=== PATIENT | female | born 1955 | race Caucasian/White ===

== ENCOUNTER 2016-06-19 19:31 | Inpatient (IN) | payer MEDICARE ==
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
--- NOTE | ~2016-06-19 | PN ---
Unit #: [id number] #: [id number] Patient: TETE OCONNELL [id number] [facility] [address] [place] [address] [id number] I MR#: [id number] NAME: TETE OCONNELL ROOM: P203 Age: 61 Sex: F Admission Date: 06/19/2016 : 1955 Attending Physician: Maxim Mathew M.D. Admitting Physician: Maxim Mathew M.D. Primary Care Physician: Sujata Rosales PROGRESS NOTES DATE 06/23/2016 DISCUSSION The patient is brighter today and more active within the therapeutic milieu. She is denying suicidal ideation but states that she is unclear as to where she will leave upon her discharge from the hospital. I have explained to the patient that she cannot remain here secondary to only to disposition issues and I have told her to expect a.m. discharge. Dictated by... Maxim Mathew M.D. CB/justen TD: 06/23/2016 23:48 JOB #: [id number] TIM PROGRESS NOTES X Maxim Mathew MD PROGRESS NOTE
--- NOTE | ~2016-06-19 | HP ---
Unit #: [id number] #: [id number] Patient: VIVIENNE OCONNELL [id number] [place] [address] [id number] I MR#: [id number] NAME: VIVIENNE OCONNELL ROOM: P203 Age: 61 Sex: F Admission Date: 06/19/2016 : 1955 Attending Physician: Maxim Mathew M.D. Admitting Physician: Maxim Mathew M.D. Primary Care Physician: Nolberto Dixon M.D. HISTORY AND PHYSICAL HISTORY OF PRESENT ILLNESS Vivienne is a 61 year old admitted to [address] [place] [address] because of her polysubstance abuse which includes methamphetamine and cocaine. She also reports depression and verbalizing wanting to hurt herself. PAST MEDICAL HISTORY 1. Degenerative disc disease. 2. Hypothyroidism. 3. High blood pressure. 4. GERD. 5. Chronic pain. a. Dilaudid pump. 6. Pacemaker placed. 7. COPD. 8. Hyperlipidemia. 9. Morbid obesity. PAST SURGICAL HISTORY 1. Hysterectomy. 2. Cholecystectomy. 3. Low back x3. 4. Lap-band. 5. Pain pump placed. ALLERGIES Keflex, Abilify, morphine. SOCIAL HISTORY She denies cigarettes, alcohol and illicit drug use. FAMILY HISTORY Medically noncontributory. REVIEW OF SYSTEMS CONSTITUTIONAL: No fever or chills. HEENT: Denies any sore throat, ear pain or runny nose. CARDIOVASCULAR: Denies chest pain, irregular heart rhythm or palpitations. CHEST: Denies shortness of breath or cough. No hemoptysis. GASTROINTESTINAL: Denies nausea, vomiting, diarrhea or chronic constipation. ENDOCRINE: Denies history of increased thirst or urination. No recent significant weight loss or gain. GENITOURINARY: Denies dysuria, frequency, or hematuria. Unit #: [id number] #: [id number] Patient: VIVIENNE OCONNELL SKIN: Denies any rashes. HEMATOLOGIC: Denies history of increased bleeding or bruising. MUSCULOSKELETAL: Denies any hot, swollen joints. No generalized muscle pain. NEUROLOGIC: Denies problems with vision or speech. No frequent, severe headaches. No numbness, tingling or weakness in any extremities. Denies loss of bladder or bowel control. CURRENT MEDICATIONS 1. Detox protocol. 2. Cymbalta 30 mg daily. 3. Diovan 160 mg daily. 4. Levothroid 0.075 mg daily. 5. Flexeril 10 mg t.i.d. p.r.n. 6. HCTZ 25 mg daily. 7. Lyrica 50 mg t.i.d. 8. Protonix 40 mg daily. 9. Norvasc 5 mg daily. 10. Wellbutrin XL 150 mg daily. PHYSICAL EXAMINATION GENERAL: Alert, morbidly obese, no apparent distress. VITAL SIGNS: Blood pressure 138/70, heart rate 80, respirations 16, temperature 98.6. WEIGHT: 315. HEIGHT: 5 feet 7 inches. SKIN: Warm and dry without rash or lesion. HEENT: Normocephalic. TMs not viewed. Oral and nasal passages clear. Conjunctivae clear. PERRLA. EOMs intact. NECK: Supple without lymphadenopathy or thyromegaly. HEART: Regular rate and rhythm without murmur. LUNGS: Clear. ABDOMEN: Soft, nontender. : Not done. EXTREMITIES: No evidence of cyanosis, clubbing or edema. Moves all without focal deficit. NEUROLOGICAL: Grossly within normal limits. Cranial Nerves: II: Visual brown are intact. III, IV AND : Extraocular movements are intact. Pupils are equal, round and reactive to light. V: Facial sensation is grossly normal. VII: Facial movements and expression are normal. VIII: Auditory acuity grossly intact. IX, X: Uvula is midline. Phonation is normal. XI: Patient shrugs shoulders and turns head normally. XII: Tongue protrudes in the midline. Sensory and Motor Function: Sensory and motor sensation is grossly normal. Motor: moves all extremities well. Coordination: Gait is normal. Deep Tendon Reflexes: Intact. IMPRESSION Psychiatric admission. RECOMMENDATIONS PSYCHIATRIC: Per psychiatrist. MEDICAL: 1. See no contraindications to participate in facility's activities. 2. Continue Diovan, Levothroid, HCTZ, Norvasc. Check BMP. Monitor blood pressure q. shift. Unit #: [id number] #: [id number] Patient: VIVIENNE OOCNNELL MEDICAL PROGNOSIS Good. MEDICAL CONDITION Stable. Dictated by... Veronika Meza P.A.-C. for Sujata Piña/gretchen TD: 06/20/2016 16:34 JOB #: [id number] HISTORY AND PHYSICAL X Veronika Meza HISTORY AND PHYSICAL
--- NOTE | ~2016-06-19 | PN ---
Unit #: [id number] #: [id number] Patient: TETE OCONNELL [id number] [facility] [address] [place] [address] [id number] I MR#: [id number] NAME: TETE OCONNELL ROOM: P203 Age: 61 Sex: F Admission Date: 06/19/2016 : 1955 Attending Physician: Maxim Mathew M.D. Admitting Physician: Maxim Mathew M.D. Primary Care Physician: Sujata Rosales PROGRESS NOTES DATE 06/22/2016 DISCUSSION The patient is abed seclusive to room with little participation of therapeutic milieu. She is firmly confronted regarding this. She states that she continues to feel "just about the same" and complains that she will not eat "the garbage they serve here" demanding initiation of Ensure. I have explained to the patient that given her degree of morbid obesity that Ensure is not indicated and that she should attempt to order heart healthy items from the milieu here. I have also encouraged her to increase her participation within the therapeutic milieu. The patient's profound acces to pathology is becoming more and more apparent. Dictated by... Maxim Mathew M.D. CB/justen TD: 06/22/2016 21:42 JOB #: [id number] TIM PROGRESS NOTES X Maxim Mathew MD X PROGRESS NOTE
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
[~2016-06-19 19:31] MED LIST: ALPRAZOLAM PO; AMBIEN PO; AMBIEN10 MG PO; ATIVAN0.5 MG PO; CELEXA PO; CRESTOR; DILAUDID PAIN PUMP; DILAUDID PUMP; DIOVAN; DIOVAN HCT 160-1 TAB PO; GABAPENTIN300 MG PO; HCTZ; HYDROCHLOROTHIA25 MG PO; HYDROCODON-ACE1 EAC9 PO; LASIX20 MG PO; LEXAPRO PO; LYRICA PO; MEDI-MECLIZINE25 M1 PO; MIRALAX17 GM PO; MOTION RELIEF25 MG PO; MOTRIN400 MG PO; NEURONTIN600 MG PO; PERCOCET10 PO; PERPHENAZINE8 MG PO; PHENERGAN PO; PHENERGAN SUPP25 MG PR; PRAVACHOL PO; PROMETHAZINE HC25 MG PO; SEROQUEL; SEROQUEL PO; SEROQUEL400 MG PO; TRAZODONE HCL100 MG PO; WELLBUTRIN; WELLBUTRIN PO; WELLBUTRIN XL PO; XANAX2 MG PO; ZOCOR PO
[2016-06-20 09:47] LABS: BASOPHIL# 0.1 X10e3 (0-0.3); BASOPHIL% 0.8 % (0-2.5); EOSINOPHIL# 0.3 X10e3 (0-0.7); EOSINOPHIL% 3.4 % (0.0-7.0); HEMATOCRIT 39.5 % (35.0-45.0); HEMOGLOBIN 13.2 gm/dL (12.0-16.0); LYMPHOCYTE# 2.8 X10e3 (1.0-3.5); LYMPHOCYTE% 33.8 % (17.0-45.0); MEAN CELL VOLUME 87.2 FL (83-96); MEAN CORPUSCULAR HEMOGLOBIN 29.2 PG (28-34); MEAN CORPUSCULAR HGB CONC 33.5 g/dL (30-36); MEAN PLATELET VOLUME 9.5 FL (6.5-11.5); MONOCYTE# 0.6 X10e3 (0-1.0); MONOCYTE% 7.3 % (3.0-12.0); NEUTROPHIL# 4.5 X10e3 (1.5-7.1); NEUTROPHIL% 54.7 % (40-75); PLATELET COUNT 239 X10e3 (140-420); RED BLOOD COUNT 4.53 X10e (3.90-5.30); RED CELL DISTRIBUTION WIDTH 12.9 % (11.0-15.5); WHITE BLOOD COUNT 8.3 X10e3 (4.0-10.5)
[2016-06-20 10:08] LABS: DIFF IND NO
[2016-06-20 10:19] LABS: THYROID STIMULATING HORMONE 4.83 uIU/ml (0.34-5.60)
[2016-06-20 10:23] LABS: ALBUMIN SERUM 3.5 g/dL (3.5-5.0); ALKALINE PHOSPHATASE 143 U/L (32-92); ALT (SGPT) 23 U/L (10-40); AST (SGOT) 34 U/L (10-42); BILIRUBIN,TOTAL 0.5 mg/dL (0.2-2.0); BLOOD UREA NITROGEN 12 mg/dL (9-23); CALCIUM SERUM 8.6 mg/dL (8.4-10.2); CARBON DIOXIDE 31 mmol/L (22-31); CHLORIDE 97 mmol/L (100-111); CREATININE SERUM 0.6 mg/dL (0.6-1.4); GLOM FILT RATE Estimated ABOVE60 mL/min (>60); GLUCOSE FASTING 165 mg/dL (70-110); PROTEIN TOTAL SERUM 6.5 g/dL (6.0-8.3); SODIUM 138 mmol/L (135-145)
[2016-06-20 10:28] LABS: FREE THYROXIN (T4) 0.74 ng/dL (0.58-1.64)
== END 2016-06-24 15:14 | disposition home or self-care (01) | DRG 885 ==
LOC: P2S 19:31
PROVIDERS: Specialist
DX: F33.1 Major depressive disorder, recurrent, moderate (principal); E66.01 Morbid (severe) obesity due to excess calories; I10 Essential (primary) hypertension; F15.10 Other stimulant abuse, uncomplicated; K21.9 Gastro-esophageal reflux disease without esophagitis; E03.9 Hypothyroidism, unspecified; G89.29 Other chronic pain; Z95.0 Presence of cardiac pacemaker; J44.9 Chronic obstructive pulmonary disease, unspecified; E78.5 Hyperlipidemia, unspecified; Z90.710 Acquired absence of both cervix and uterus; F41.9 Anxiety disorder, unspecified
CPT/HCPCS: 80053; 84439; 84443; 85025

== ENCOUNTER 2016-09-10 23:00 | Inpatient (IN) | payer MEDICARE, OTHER ==
--- NOTE | ~2016-09-10 | DS ---
Unit #: [id number] #: [id number] Patient: TETE OCONNELL [id number] [facility] [address] [place] [address] [id number] I MR#: [id number] NAME: TETE OCONNELL ROOM: [facility] Age: 61 Sex: F Admission Date: 09/11/2016 : 1955 Discharge Date: 09/15/2016 Attending Physician: Maxim Mathew M.D. Primary Care Physician: Nolberto Dixon M.D. DISCHARGE SUMMARY REASON FOR ADMISSION The patient is a 61-year-old white female, admitted with recurrent suicidal ideation. HOSPITAL COURSE The patient was admitted to the [address] [address] and placed on suicide precautions. She was continued on home medications with wish to increase the Cymbalta to 60 mg daily. The patient was more active in her participation within the therapeutic milieu and was brighter as her hospitalized progressed. She stated that she had reconciled with her on 09/15 and requests discharge and it was ordered. DISCHARGE DIAGNOSES Viper I Major depressive disorder, recurrent, moderate. Alcohol use disorder. Viper II Viper III Morbid obesity. Hypertension. GERD. Viper IV Viper V DISPOSITION ON DISCHARGE The patient is discharged on the following medications: 1. Cymbalta 60 mg daily for depression 2. Vistaril 50 mg q.6h p.r.n. anxiety 3. Norvasc 5 mg once daily for hypertension 4. Wellbutrin XL 450 mg daily for depression 5. Flexeril 10 mg three times daily for muscle relaxation 6. Oretic 25 mg once daily for hypertension 7. Synthroid 0.075 mg daily for hypothyroidism 8. Protonix 40 mg once daily for GERD 9. Diovan 160 mg daily for hypertension PROGNOSIS The patient's prognosis is considered fair. DIET AND ACTIVITY No dietary or physical restrictions placed on this patient at the time of discharge. Unit #: [id number] #: [id number] Patient: TETE OCONNELL Follow up to take place through the auspices of community mental health resources. Dictated by... Maxim Mathew M.D. ALVIN/nori TD: 09/16/2016 10:56 JOB #: [id number] DISCHARGE SUMMARY Page 1 of 1 X Maxim Mathew MD DISCHARGE SUMMARY
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
--- NOTE | ~2016-09-10 | HP ---
Unit #: [id number] #: [id number] Patient: VIVIENNE OCONNELL [id number] [facility] [address] [place] [address] [id number] MR#: [id number] NAME: VIVIENNE COONNELL ROOM: 16 Age: 61 Sex: F Admission Date: 09/11/2016 : 1955 Attending Physician: Maxim Mathew M.D. Admitting Physician: Maxim Mathew M.D. Primary Care Physician: Nolberto Dixon M.D. HISTORY AND PHYSICAL HISTORY OF PRESENT ILLNESS Vivienne is a 61 year old admitted to [address] [place] [address] with depression and verbalizing wanting to hurt herself. She has had other admissions to this facility. PAST MEDICAL HISTORY 1. Degenerative disc disease 2. Hypothyroidism 3. High blood pressure 4. GERD 5. Chronic pain a. Dilaudid pump 6. Cardiac disease a. Pacemaker placed 7. COPD 8. Hyperlipidemia 9. Morbid obesity PAST SURGICAL HISTORY 1. Hysterectomy 2. Cholecystectomy 3. Low back x 3 4. Lap band 5. Pain pump placed, left lower abdomen 6. Pacemaker placed ALLERGIES 1. Keflex 2. Abilify 3. Morphine SOCIAL HISTORY She denies cigarettes and alcohol. Admits to a history of amphetamine and cocaine use. FAMILY HISTORY Medically noncontributory. REVIEW OF SYSTEMS CONSTITUTIONAL: No fever or chills. HEENT: Denies any sore throat, ear pain or runny nose. CARDIOVASCULAR: Denies chest pain, irregular heart rhythm or palpitations. Unit #: [id number] #: [id number] Patient: VIVIENNE OCONNELL CHEST: Denies shortness of breath or cough. No hemoptysis. GASTROINTESTINAL: Denies nausea, vomiting, diarrhea or chronic constipation. ENDOCRINE: Denies history of increased thirst or urination. No recent significant weight loss or gain. GENITOURINARY: Denies dysuria, frequency, or hematuria. SKIN: Denies any rashes. HEMATOLOGIC: Denies history of increased bleeding or bruising. MUSCULOSKELETAL: Denies any hot, swollen joints. No generalized muscle pain. NEUROLOGIC: Denies problems with vision or speech. No frequent, severe headaches. No numbness, tingling or weakness in any extremities. Denies loss of bladder or bowel control. CURRENT MEDICATIONS 1. Detox protocol 2. Diovan 160 mg q day 3. Protonix 40 mg q day 4. HCTZ 25 mg q day 5. Norvasc 5 mg q day 6. Cymbalta 60 mg q day 7. Levothroid 0.75 mg q.a.m. 8. Lyrica 50 mg t.i.d. 9. Wellbutrin 150 mg t.i.d. 10. Flexeril 10 mg t.i.d. p.r.n. PHYSICAL EXAMINATION GENERAL: Alert, morbidly obese, in no apparent distress. VITAL SIGNS: Blood pressure 150/56, heart rate 80, respirations 16, temperature 98.6. WEIGHT: 303 pounds. HEIGHT: 5'10". SKIN: Warm and dry without rash or lesion. HEENT: Normocephalic. TMs not viewed. Oral and nasal passages clear. Conjunctivae clear. Pupils equal, round and reactive to light and accommodation. Extraocular movements intact. NECK: Supple without lymphadenopathy or thyromegaly. HEART: Regular rate and rhythm without murmur. Pacemaker noted along left upper anterior chest wall. LUNGS: Clear. ABDOMEN: Soft, nontender. Pain pump noted along left lower quadrant. : Not done. EXTREMITIES: No evidence of cyanosis or clubbing. Two plus edema, bilateral lower extremities. Moves all without focal deficit. NEUROLOGICAL: Grossly within normal limits. Cranial Nerves: II: Visual brown are intact. III, IV AND : Extraocular movements are intact. Pupils are equal, round and reactive to light. V: Facial sensation is grossly normal. VII: Facial movements and expression are normal. VIII: Auditory acuity grossly intact. IX, X: Uvula is midline. Phonation is normal. XI: Patient shrugs shoulders and turns head normally. XII: Tongue protrudes in the midline. Sensory and Motor Function: Sensory and motor sensation is grossly normal. Motor: moves all extremities well. Coordination: Gait is normal. Deep Tendon Reflexes: Intact. IMPRESSION Psychiatric admission Unit #: [id number] #: [id number] Patient: VIVIENNE OCONNELL RECOMMENDATIONS PSYCHIATRIC: Per psychiatrist. MEDICAL: 1. I see no contraindications to participating in facility's activities. 2. Pain pump is preset by Dr. Gutierrez. MEDICAL PROGNOSIS Good. MEDICAL CONDITION Stable. Dictated by... VeronikaJon Noriega/justen TD: 09/12/2016 00:18 JOB #: [id number] HISTORY AND PHYSICAL Page 1 of 1 X Veronika Meza X HISTORY AND PHYSICAL
--- NOTE | ~2016-09-10 | PN ---
Unit #: [id number] #: [id number] Patient: TETE OCONNELL [id number] [facility] [address] [place] [address] [id number] I MR#: [id number] NAME: TETE OCONNELL ROOM: 16 Age: 61 Sex: F Admission Date: 09/11/2016 : 1955 Attending Physician: Maxim Mathew M.D. Admitting Physician: Maxim Mathew M.D. Primary Care Physician: Sujata Rosales PROGRESS NOTES DATE 09/14/2016 DISCUSSION The patient seems a bit brighter today and is less seclusive to room. She is requesting a.m. discharge and we will look to move in that direction. Dictated by... Maxim Mathew M.D. CB/justen TD: 09/15/2016 02:31 JOB #: [id number] TIM PROGRESS NOTES Page 1 of 1 X Maxim Mathew MD X PROGRESS NOTE
--- NOTE | ~2016-09-10 | PN ---
Unit #: [id number] #: [id number] Patient: TETE OCONNELL [id number] [facility] [address] [place] [address] [id number] MR#: [id number] NAME: TETE OCONNELL ROOM: 16 Age: 61 Sex: F Admission Date: 09/11/2016 : 1955 Attending Physician: Maxim Mathew M.D. Admitting Physician: Maxim Mathew M.D. Primary Care Physician: Sujata Rosales PROGRESS NOTES DATE 09/13/2016 DISCUSSION The patient is abed, resting comfortably today. Staff reports little participation within the therapeutic milieu but reports that the patient is continuing to endorse positive suicidal ideation. Again, this physician has confronted the patient regarding her previous hospitalization wherein she seemed to be fabricating symptoms secondary to her homeless status. Dictated by... Maxim Mathew M.D. CB/jaswant TD: 09/13/2016 12:56 JOB #: [id number] [facility] PROGRESS NOTES Page 1 of 1 X Maxim Mathew MD X PROGRESS NOTE
== END 2016-09-15 15:00 | disposition home or self-care (01) | DRG 885 ==
LOC: P1S 09-11 02:42
PROC: HZ2ZZZZ Detoxification Services for Substance Abuse Treatment (ICD-10-PCS; principal; 2016-09-11)
DX: F33.1 Major depressive disorder, recurrent, moderate (principal); E66.01 Morbid (severe) obesity due to excess calories; I10 Essential (primary) hypertension; G89.29 Other chronic pain; E03.9 Hypothyroidism, unspecified; E78.5 Hyperlipidemia, unspecified; K21.9 Gastro-esophageal reflux disease without esophagitis; Z95.0 Presence of cardiac pacemaker; Z90.710 Acquired absence of both cervix and uterus; Z90.49 Acquired absence of other specified parts of digestive tract; F10.10 Alcohol abuse, uncomplicated
CPT/HCPCS: 86592; J1200

== ENCOUNTER → 2017-01-16 | Outpatient (CLI) | payer MEDICARE, OTHER ==
--- NOTE | ~2017-01-16 | CR151 ---
[facility] A Service of [facility] & [facility] RADIOLOGY TEXT RESULTS PATIENT: TETE OCONNELL LOCATION: [facility] : 55 UNIT #: [id number] AGE: [address]: Jaycob Field MD SEX: F ORDER DR: [id number] [facility] [address] [place], [place] [address] [id number] O MR#: [id number] Acc #: [id number] NAME: TETE OCONNELL : 1955 SEX: F STUDY DATE/TIME: 01/16/2017 18:17 UNIT: [facility] ROOM: STUDY DESCRIPTION: CR Hip Min 2 Views Rt Attending Physician: Jaycob Field M.D. Referring Physician: Jaycob Field M.D. Ordering Physician: Jaycob Field M.D. Primary Care Physician: Nolberto Dixon M.D. MEDICAL IMAGING REPORT This report is preliminary unless electronic signature is present EXAM Right hip 2 views INDICATIONS Right hip pain for 2 weeks. No comparisons. FINDINGS There is mild joint space narrowing of both hips. There is no fracture or dislocation. Degenerative changes lower lumbar spine. IMPRESSION Degenerative changes as described Dictated by... Urban Herndon M.D. THIS IS AN ELECTRONICALLY VERIFIED REPORT Urban Herndon M.D. at 01/19/2017 7:38 AM VANESSA/edgar TD: 01/17/2017 22:25 JOB #: [id number] MEDICAL IMAGING REPORT Page 1 of 1 COPY
== END | disposition home or self-care (01) ==
LOC: CRAD 17:46
DX: M25.551 Pain in right hip (principal); M16.11 Unilateral primary osteoarthritis, right hip
CPT/HCPCS: 73502